=== PATIENT | female | born 1990 | race Caucasian/White ===

== ENCOUNTER 2020-08-04 15:21 | Emergency (ER) | payer MEDICAID ==
[~2020-08-04] VITALS: Ht 167.6 cm; Wt 100.7 kg
[2020-08-04 15:31] VITALS: Ht 167.6 cm; Wt 100.7 kg
[2020-08-04 19:12] VITALS: BP 106/66
== END 2020-08-04 19:13 | disposition home or self-care (01) ==
LOC: ED 15:21
DX: K80.50 Calculus of bile duct without cholangitis or cholecystitis without obstruction (principal); N39.0 Urinary tract infection, site not specified
CPT/HCPCS: J1885; Q0162